=== PATIENT | female | born 1935 | race Caucasian/White ===

== ENCOUNTER 2018-08-16 15:14 | Emergency (ER) ==
[2018-08-16 15:23] VITALS: BP 182/74; TEMP 98.9; BMI 44.6
--- NOTE | 2018-08-16 18:44 | ED.PDOC ---
General ED Provider: Dr. CATALINA RENEE Chief Complaint: Extremity Swelling/Pain Stated Complaint: Lt leg and ankle swollen and painful. Daughter accompanies patient. States she is in town visiting and noted her mother's let was swollen. Known past hx of cellulits and peripheral vascular disease.Worried about DVT. States she noted the problem and attempting to treat at home. Time Seen by Physician: 15:40 Mode of Arrival: Walk-In Information Source: Patient, Family Exam Limitations: No limitations Primary Care Provider: CATALINA ABREU Seen Within Last 72 Hours for Same Complaint By: ED Nursing and Triage Documentation Reviewed and Agree: Yes Does patient meet sepsis criteria?: No System Inflammatory Response Syndrome: Not Applicable Sepsis Protocol: For patient's 13 years and over: Temp is 96.8 and below OR 101 and greater Pulse >90 BPM Resp >20/minute Acutely Altered Mental Status Are patient's symptoms suggestive of a new infection, such as: -Pneumonia -Skin, Soft Tissue -Endocarditis -UTI -Bone, Joint Infection -Implantable Device -Acute Abdominal Infection -Wound Infection -Meningitis -Blood Stream Catheter Infection -Unknown Skin Complaint Exam - Skin/Soft Tissue Complaint/Exam Onset/Duration: 1 week Symptoms Are: Still present Timing: Constant Initial Severity: Moderate Current Severity: Moderate Location: Distal Lt Leg Character: Reports: Redness, Swelling, Painful Aggravating: Reports: Touch Associated Signs and Symptoms: Reports: Tenderness. Denies: Fever, Chills, Itching, Drainage, Bruising, Red streaks, Joint swelling Related History: Reports: Similar episode Related Surgical History: Reports: None Recent Exposure to Others w/Similar Symptoms: No Skin Findings: Present: Erythema, Induration, Weeping skin Joint Tenderness Present: No Differential Diagnoses: Cellulitis, Other (PVD) Review of Systems - Review Of Systems Constitutional: Reports: No symptoms Eyes: Reports: No symptoms Ears, Nose, Mouth, Throat: Reports: No symptoms Respiratory: Reports: No symptoms Cardiac: Reports: No symptoms GI: Reports: No symptoms : Reports: No symptoms Musculoskeletal: Reports: No symptoms Skin: Reports: No symptoms, Other (See HPI) Neurological: Reports: No symptoms Endocrine: Reports: No symptoms Hematologic/Lymphatic: Reports: No symptoms All Other Systems: Reviewed and Negative Past Medical History - Past Medical History Previously Healthy: Yes Endocrine: Reports: None Cardiovascular: Reports: None, Hypertension, DVT Respiratory: Reports: None Hematological: Reports: None Gastrointestinal: Reports: None, GERD Genitourinary: Reports: None Neuro/Psych: Reports: None, Other (peripheral neuropathy) Musculoskeletal: Reports: None Cancer: Reports: None Last Menstrual Period: hysterectomy - Surgical History General Surgical History: Reports: None - Family History Family History: Reports: None - Social History Smoking Status: Never smoker Hx Substance Use: No Alcohol Screening: None Physical Exam - Physical Exam Appearance: Well-appearing, Obese Ill-appearing: Mild Pain Distress: Mild Eyes: OMER, EOMI, Conjunctiva clear ENT: Ears normal, Nose normal, Oropharynx normal Neck: Supple Respiratory: Airway patent, Breath sounds clear, Breath sounds equal, Respirations nonlabored Cardiovascular: RRR, Pulses normal, No rub, No murmur GI/: Soft, Nontender, No masses, Bowel sounds normal, No Organomegaly Musculoskeletal: Edema (BLLE/Lt LE more edematous. Homans sign neg bilat; neg calf tenderness) Skin: Warm, Dry, Normal color Neurological: Sensation intact, Motor intact, Cranial nerves intact, Alert, Oriented Psychiatric: Affect appropriate, Mood appropriate Critical Care Note - Critical Care Note Total Time (mins): 60 Course - Course Hematology/Chemistry: 08/16/18 17:30 08/16/18 17:30 Orders, Labs, Meds: Lab Review 08/16/18 08/16/18 08/16/18 17:30 17:30 17:48 WBC 6.41 RBC 4.20 Hgb 12.7 Hct 38.5 MCV 91.7 MCH 30.2 MCHC 33.0 RDW Coeff of Annika 14.5 Plt Count 216 Immature Gran % (Auto) 0.3 Neut % (Auto) 53.6 Lymph % (Auto) 35.1 [place] % (Auto) 8.3 Eos % (Auto) 2.2 Baso % (Auto) 0.5 Immature Gran # (Auto) 0.0 Neut # (Auto) 3.4 Lymph # (Auto) 2.3 [place] # (Auto) 0.5 Eos # (Auto) 0.1 Baso # (Auto) 0.0 Sodium 136.5 Potassium 4.03 Chloride 103.3 Carbon Dioxide 30.3 H Anion Gap 6.93 BUN 24.2 H Creatinine 0.95 Estimated GFR (MDRD) 56.00 BUN/Creatinine Ratio 25.47 Glucose 96.2 Calcium 9.52 Total Bilirubin 0.60 AST 24.8 ALT 16.9 Alkaline Phosphatase 60.6 Total Protein 7.66 Albumin 4.32 Globulin 3.34 Albumin/Globulin Ratio 1.29 Urine Color Yellow Urine Clarity Slightly Urine pH 7.0 Ur Specific [place] 1.015 Urine Protein Negative Urine Glucose (UA) Negative Urine Ketones Negative Urine Blood Negative Urine Nitrite Negative Urine Bilirubin Negative Urine Urobilinogen 0.2 Ur Leukocyte Esterase 2+ Urine Microscopic RBC 0-2 Urine Microscopic WBC 20-30 Ur Squamous Epith Cells 0-2 Urine Bacteria Trace Orders Category Date Time Status CBC W/ AUTO DIFF Stat LAB 08/16/18 17:30 Completed CMP [COMPREHENSIVE METABOLIC PANEL] Stat LAB 08/16/18 17:30 Completed UA [URINALYSIS C & S IF INDICATED] Stat LAB 08/16/18 17:48 Completed URINE CULTURE Stat LAB 08/16/18 17:48 Completed Cephalexin [Keflex] MEDS 08/16/18 18:43 Discontinued 500 mg PO ONCE STA Medications Discontinued Medications Generic Name Dose Route Start Last Admin Trade Name Freq PRN Reason Stop Dose Admin Cephalexin 500 mg 08/16/18 18:43 08/16/18 18:49 Keflex PO 08/16/18 18:44 500 mg ONCE STA Administration Vital Signs: Temp Pulse Resp BP Pulse Ox 08/16/18 15:14 98.9 F 82 16 182/74 H 94 L Departure - Departure Time of Disposition: 18:45 Disposition: HOME SELF-CARE Discharge Problem: Cellulitis and abscess of left leg, Stasis dermatitis of both legs, UTI ( urinary tract infection) Instructions: Urinary Tract Infection in Women (ED), Cellulitis (ED), Stasis Dermatitis (ED) Condition: Fair Pt referred to PMD for follow-up: Yes (1 wk) IPMP verified?: No Additional Instructions: Keep legs elevated Restrict salt consumption Take antibiotics Prescriptions: Cephalexin [Keflex] 500 mg PO BID #14 capsule Allergies/Adverse Reactions: Allergies No Known Allergies Allergy (Unverified 08/16/18 15:24) Home Medications: Ambulatory Orders Amlodipine Besylate 5 mg PO DAILY 08/16/18 Aspirin [Aspirin EC] 81 mg PO DAILY 08/16/18 Cephalexin [Keflex] 500 mg PO BID #14 capsule 08/16/18 Gabapentin [Neurontin] 600 mg PO DAILY 08/16/18 Hydralazine HCl 10 mg PO TID 08/16/18 Omeprazole [Prilosec] 20 mg PO QDAC 08/16/18 Disposition Discussed With: Patient, Family
[2018-08-16] MEDS: KEFLEX PO STA (18:49)
== END 2018-08-16 18:57 | disposition home or self-care (01) ==
LOC: ED 15:14
DX: L03.116 Cellulitis of left lower limb (principal); L02.416 Cutaneous abscess of left lower limb; I87.2 Venous insufficiency (chronic) (peripheral); N39.0 Urinary tract infection, site not specified; I10 Essential (primary) hypertension; Z86.718 Personal history of other venous thrombosis and embolism
CPT/HCPCS: 36415; 80053; 81001; 85025; 87086; 99283

== ENCOUNTER 2018-11-20 13:36 | Outpatient (CLI) | END 2018-11-20 13:37 | disposition home or self-care (01) | LOC: LAB 13:36 | PROVIDERS: ATTEND Family Medicine | DX: R79.9 Abnormal finding of blood chemistry, unspecified (principal) | CPT/HCPCS: 36415; 85025 ==

== ENCOUNTER 2018-12-22 13:45 | Outpatient (CLI) ==
--- NOTE | 2018-12-22 14:33 | DI ---
Exam: Chest two-view. HISTORY: Cough. Comparison: 08/10/2016 Findings: AP and lateral images of the chest are submitted. These demonstrate mild asymmetric eleva tion of the right diaphragm. There is no pneumothorax or edema. Mild opacification is noted at the left lung base. The cardiac silhouette is enlarged. The thoracic aorta is partially calcified. Deg enerative findings are noted throughout the spine. Impressions: Cardiomegaly and atherosclerosis. Mild left base atelectasis or pneumonia.
== END 2018-12-22 13:46 | disposition home or self-care (01) ==
LOC: RAD 13:45
PROVIDERS: ATTEND Family Medicine
DX: R05 Cough (principal)

== ENCOUNTER 2018-12-24 06:39 | Emergency (ER) ==
[2018-12-24 06:51] VITALS: BP 165/83; TEMP 99.8
[2018-12-24 07:19] VITALS: BMI 38.0
--- NOTE | 2018-12-24 08:30 | CT ---
EXAM: CT of the chest without contrast History: Cough. Comparison: Chest CT 10/31/2009 Technique: Multiplanar CT images through the thorax were obtained without the administration of IV c ontrast Findings: Heart is enlarged. Coronary calcifications and valvular calcifications of the heart. No axillary or mediastinal lymphadenopathy. Evaluation for hilar lymph nodes is limited due to the lack of contrast administration. Calcified granulomas are again seen within the thorax. No pleural flui d and no pneumothorax. No consolidated pneumonia. Scattered areas of subsegmental atelectasis. No suspicious lung masses or lung nodules. Within the visualized upper abdomen, multiple gallstones are seen. Tiny hiatal hernia. No acute oss eous abnormalities. Impression: 1. No focal pneumonia. 2. Scattered areas of subsegmental atelectasis. 3. Cardiomegaly without evidence for pulmonary edema. 4. Coronary artery disease. 5. Multiple gallstones. 6. Tiny hiatal hernia
--- NOTE | 2018-12-24 08:37 | ED.PDOC ---
General ED Provider: Dr. AICHA ALMEIDA Chief Complaint: Shortness of Air Stated Complaint: cough , congestion short of air Time Seen by Physician: 07:00 (December PRESENT) Mode of Arrival: Wheelchair Information Source: Patient Exam Limitations: No limitations Primary Care Provider: CATALINA ABREU Nursing and Triage Documentation Reviewed and Agree: Yes Does patient meet sepsis criteria?: No System Inflammatory Response Syndrome: Not Applicable Sepsis Protocol: For patient's 13 years and over: Temp is 96.8 and below OR 101 and greater Pulse >90 BPM Resp >20/minute Acutely Altered Mental Status Are patient's symptoms suggestive of a new infection, such as: -Pneumonia -Skin, Soft Tissue -Endocarditis -UTI -Bone, Joint Infection -Implantable Device -Acute Abdominal Infection -Wound Infection -Meningitis -Blood Stream Catheter Infection -Unknown Respiratory Complaint Exam - Respiratory Complaint/Exam Symptoms Are: Still present (cough and congestion no resp distress noted upon MD EVALUATION) Timing: Intermittent Initial Severity: Mild Location: Unknown, Chest Character: Reports: Non-productive cough, Dry cough Aggravating: Reports: None Alleviating: Reports: None Associated Signs and Symptoms: Denies: Rapid breathing, Dyspnea, Fever, Chills, Chest pain, Pleuritic chest pain, Wheezing, Hemoptysis, Dizziness, Calf pain, Calf swelling, Edema, URI, Nasal congestion, Hoarseness, Sinus discomfort, Vomiting, Sore throat, Weight loss, Decreased oral intake, Increased thirst, Increased appetite, Increased urination History of Healthcare-Acquired Pneumonia: No Related Surgical History: Reports: None Cardiac Risk Factors: Reports: Hypertension Pseudomonas Risk Factors: Reports: None Tuberculosis Risk Factors: Reports: None Status Asthmaticus Risk Factors: Reports: None Home Oxygen Use: No Recent Stress Test: No Recent Echo/LV Function: No Current Antibiotic Use: No Current Asthma Medication Use: No Respiratory Distress: None Inadequate Respiratory Effort: No Dysphagia Present: No Stridor Present: No JVD Present: No Accessory Muscle Use: No Retractions: Not Present, Inadequate effort Diminished Breath Sounds: Yes Sinus Tenderness: None Grunting Respirations: No Kussmaul Respirations: No Differential Diagnoses: Pneumonia, Bronchitis Review of Systems - Review Of Systems Constitutional: Reports: No symptoms Eyes: Reports: No symptoms Ears, Nose, Mouth, Throat: Reports: No symptoms Respiratory: Reports: Cough Cardiac: Reports: No symptoms GI: Reports: No symptoms : Reports: No symptoms Musculoskeletal: Reports: No symptoms Skin: Reports: No symptoms Neurological: Reports: No symptoms Endocrine: Reports: No symptoms Hematologic/Lymphatic: Reports: No symptoms All Other Systems: Reviewed and Negative Past Medical History - Past Medical History Previously Healthy: Yes Endocrine: Reports: None Cardiovascular: Reports: None, Hypertension, DVT Respiratory: Reports: None Hematological: Reports: None Gastrointestinal: Reports: None, GERD Genitourinary: Reports: None Neuro/Psych: Reports: None, Other (peripheral neuropathy) Musculoskeletal: Reports: None Cancer: Reports: None Last Menstrual Period: PT HAS HAD A HYSTERECTOMY - Surgical History General Surgical History: Reports: None - Family History Family History: Reports: None - Social History Smoking Status: Never smoker Hx Substance Use: No Alcohol Screening: None - Immunizations Tetanus Shot up to Date: Yes Physical Exam - Physical Exam Appearance: Well-appearing, No pain distress, Well-nourished Eyes: OMER, EOMI, Conjunctiva clear ENT: Ears normal, Nose normal, Oropharynx normal Respiratory: Rhonchi Cardiovascular: RRR, Pulses normal, No rub, No murmur GI/: Soft, Nontender, No masses, Bowel sounds normal, No Organomegaly Musculoskeletal: Normal strength, ROM intact, No edema, No calf tenderness Skin: Warm, Dry, Normal color Neurological: Sensation intact, Motor intact, Reflexes intact, Cranial nerves intact, Alert, Oriented Psychiatric: Affect appropriate, Mood appropriate Interpretation - Radiology Interpretation Radiology Interpretation By: Radiologist Radiology Results: No acute changes Exam Interpreted: CT Scan - Patient Registration Manager Rate: Normal Rhythm: Sinus Ectopy: None, PACs - EKG Interpretation Rate: Normal Rhythm: Sinus Ectopy: None [place]: NL ST Segment: Normal Critical Care Note - Critical Care Note Total Time (mins): 0 Course - Course Hematology/Chemistry: 12/24/18 07:11 12/24/18 07:11 Orders, Labs, Meds: Lab Review 12/24/18 12/24/18 12/24/18 07:11 07:11 07:20 WBC 6.57 RBC 3.94 L Hgb 11.9 L Hct 36.1 L MCV 91.6 MCH 30.2 MCHC 33.0 RDW Coeff of Annika 14.9 H Plt Count 192 Immature Gran % (Auto) 0.5 Neut % (Auto) 57.6 Lymph % (Auto) 25.7 [place] % (Auto) 12.9 H Eos % (Auto) 3.0 Baso % (Auto) 0.3 Immature Gran # (Auto) 0.0 Neut # (Auto) 3.8 Lymph # (Auto) 1.7 [place] # (Auto) 0.9 Eos # (Auto) 0.2 Baso # (Auto) 0.0 Puncture Site R rad O2 Saturation 96.0 ABG pH 7.392 ABG pCO2 40.8 ABG pO2 82.0 L ABG HCO3 24.8 ABG Total CO2 26 ABG Base Excess 0 Binu Test + FiO2 % 21.0 Sodium 140.1 Potassium 3.95 Chloride 105.0 Carbon Dioxide 27.7 Anion Gap 11.35 BUN 22.5 H Creatinine 0.97 Estimated GFR (MDRD) 55.00 BUN/Creatinine Ratio 23.19 Glucose 94.8 Calcium 8.62 Total Bilirubin 0.78 AST 19.9 ALT 14.3 Alkaline Phosphatase 63.3 Total Protein 6.56 Albumin 4.01 Globulin 2.55 Albumin/Globulin Ratio 1.57 Orders Category Date Time Status ABG DRAW REQUEST Stat CARDIO 12/24/18 07:10 Completed EKG-(ED ONLY) Stat CARDIO 12/24/18 07:10 Completed ABG Stat LAB 12/24/18 07:20 Completed CBC W/ AUTO DIFF Stat LAB 12/24/18 07:11 Completed COMPREHENSIVE METABOLIC PANEL Stat LAB 12/24/18 07:[address] CHEST W/O CONTRAST Stat RADS 12/24/18 07:09 Completed Vital Signs: Temp Pulse Resp BP Pulse Ox 12/24/18 06:39 99.8 F H 68 24 165/83 H 96 Departure - Departure Time of Disposition: 08:38 Disposition: HOME SELF-CARE Discharge Problem: Cough Instructions: Chronic Cough (ED) Condition: Good Pt referred to PMD for follow-up: Yes IPMP verified?: No Additional Instructions: Please call your Family Physician as soon as possible to schedule a follow-up appointment. Your blood gases are NORMAL YOUR CT DOES NOT SHOW A PNEUMONIA. NO EMERGENCY CONDITIONS DETECTED. Allergies/Adverse Reactions: Allergies lisinopril [From Zestril] Adverse Reaction (Verified 12/24/18 06:50) Cough Home Medications: Ambulatory Orders Amlodipine Besylate 5 mg PO DAILY 08/16/18 Aspirin [Aspirin EC] 81 mg PO DAILY 08/16/18 Gabapentin [Neurontin] 600 mg PO DAILY 08/16/18 Hydralazine HCl 10 mg PO TID 08/16/18 Omeprazole [Prilosec] 20 mg PO QDAC 08/16/18 Amoxicillin/Potassium Clav [Augmentin 875-125 mg Tab] 1 tab PO Q12HR 12/24/18 Disposition Discussed With: Patient, Family
== END 2018-12-24 08:55 | disposition home or self-care (01) ==
LOC: ED 06:39
DX: R05 Cough (principal); R06.02 Shortness of breath; I10 Essential (primary) hypertension; Z86.718 Personal history of other venous thrombosis and embolism; Z79.899 Other long term (current) drug therapy
CPT/HCPCS: 36415; 80053; 82803; 85025; 93005; 93010; 99283

== ENCOUNTER 2023-11-18 11:02 | Observation (INO) ==
--- NOTE | 2023-11-18 11:05 | ED.PDOC ---
General ED Provider: Dr. AICHA VEE MD Chief Complaint: Shortness of Air Stated Complaint: Patient history of hypertension and congestive heart failure complains of increasing dyspnea the past week exertional dyspnea as well as orthopnea over the past week. Patient states her diuretics were discontinued 6 months ago. Patient complains occasional cough denies fever or chills. Patient also complains of lower extremity swelling with warmth and redness over her mid to lower shins. Time Seen by Provider: 11/18/23 11:05 Mode of Arrival: Wheelchair Information Source: Patient and Family Exam Limitations: No limitations Primary Care Provider: CATALINA ABREU Nursing and Triage Documentation Reviewed and Agree: Yes What is Opioid Naive?: *Opioid Naive implies the patient is not already taking opioids or not chronically receiving opioids on a daily basis. *PRN dosing is not "usually" associated with tolerance. *Patients are at higher risk of over-sedation and aspiration. What is Opioid Tolerant?: *Opioid Tolerance implies less than the expected response to an opioid. *Acquired tolerance is defined by the patient taking 60mg of oral morphine daily (or equianalgesic dose of another opioid) for 1 week or more. *Often associated with chronic pain. *May take more than usual dose to achieve desired pain control. Review of Systems Review Of Systems Constitutional: Reports Weakness Eyes: Reports No symptoms Ears, Nose, Mouth, Throat: Reports No symptoms Respiratory: Reports Cough, Orthopnea and Shortness of Breath Cardiac: Reports No symptoms GI: Reports No symptoms : Reports No symptoms Musculoskeletal: Reports Other (Bilateral lower extremity swelling with redness and warmth and pain) Skin: Reports No symptoms Neurological: Reports No symptoms Endocrine: Reports No symptoms Hematologic/Lymphatic: Reports No symptoms All Other Systems: Reviewed and Negative [facility] Female Reproductive History Menstrual Hx Hysterectomy: Yes Hx Tubal Ligation: No Physical Exam Physical Exam Appearance: Reports Obese Ill-appearing: None Pain Distress: None Eyes: Reports OMER, EOMI and Conjunctiva clear ENT: Reports Ears normal, Nose normal and Oropharynx normal Neck: Supple Respiratory: Reports Airway patent, Breath sounds diminished and Other (Inspiratory crackles right base greater than left there is 2 pillow orthopnea noted.) Cardiovascular: Reports RRR and Pulses normal GI/: Reports Soft, Nontender and No masses Musculoskeletal: Reports Normal strength, Edema (There is 2+ pretibial edema with bilateral calf tenderness there is erythema and warmth from the mid bilateral shins and calf to the ankles.) and Calf tenderness Skin: Reports Warm and Dry Neurological: Reports Sensation intact Psychiatric: Reports Affect appropriate Physician Notification Case Discussed Physician Notified: discussed with hospitalist Mk Medrano Time of Notification: 15:05 Comments: and after discussing the patient'S laboratory data, presentation portable chest x-ray CT of the chest PE protocol and results of IV diuretics Admit To: Observation Critical Care Note Critical Care Note Total Critical Care Time (mins): 0 Course Course 11/18/23 11:15 11/18/23 11:15 Orders, Labs, Meds: Lab Review 11/18/23 11:15 WBC 5.21 RBC 3.86 L Hgb 11.4 L Hct 36.2 L MCV 93.8 MCH 29.5 MCHC 31.5 L RDW Coeff of Annika 15.2 H Plt Count 226 Immature Gran % (Auto) 0.4 Neut % (Auto) 66.9 Lymph % (Auto) 20.2 [place] % (Auto) 9.2 Eos % (Auto) 2.9 Baso % (Auto) 0.4 Neut # (Auto) 3.5 Lymph # (Auto) 1.1 [place] # (Auto) 0.5 Eos # (Auto) 0.2 Baso # (Auto) 0.0 Immature Gran # (Auto) 0.0 PT 10.8 INR 1.04 APTT 27.2 Sodium 140.9 Potassium 3.79 Chloride 106.8 Carbon Dioxide 28.2 Anion Gap 9.69 BUN 27.2 H Creatinine 0.90 Estimated GFR (MDRD) 59.00 BUN/Creatinine Ratio 30.22 Glucose 90.3 Calcium 8.96 Magnesium 2.24 Total Bilirubin 0.72 AST 24.8 ALT 23.2 Alkaline Phosphatase 71.3 Troponin I < 0.012 NT-Pro-B Natriuret Pep 3430 H Total Protein 7.25 Albumin 3.85 Globulin 3.40 Albumin/Globulin Ratio 1.13 D-Dimer 1394.41 H Orders Category Date Time Status EKG-(ED ONLY) Stat CARDIO 11/18/23 11:25 Completed IP: INSERT SALINE LOCK ONCE CARE 11/18/23 11:25 Active NPO REMINDER: IMAGING ONCE CARE 11/18/23 13:00 Completed Wheel Grinder [ED SWABBER APPLIED] .ONCE EMERGENCY 11/18/23 11:25 Active BLOOD CULTURE Stat LAB 11/18/23 13:04 Received CBC W/ AUTO DIFF Stat LAB 11/18/23 11:15 Completed CMP [COMPREHENSIVE METABOLIC PANEL] Stat LAB 11/18/23 11:15 Completed COVID [SARS COV-2 RNA RAPID ROZINA] Stat LAB 11/18/23 15:01 Ordered D-DIMER Stat LAB 11/18/23 11:15 Completed MAGNESIUM Stat LAB 11/18/23 11:15 Completed NT-PROBNP(ED) Stat LAB 11/18/23 11:15 Completed PT WITH INR Stat LAB 11/18/23 11:15 Completed PTT [PARTIAL THROMBOPLASTIN TIME] Stat LAB 11/18/23 11:15 Completed TROPONIN I Stat LAB 11/18/23 11:15 Completed Enoxaparin Sodium [Lovenox] Meds 11/18/23 15:04 Discontinued 60 mg SUBCUT ONCE STA Furosemide [Lasix] Meds 11/18/23 11:25 Discontinued 40 mg IVP ONCE STA Vancomycin/Water For Inj (Peg) [Vancomycin 1 Gram/200 Meds 11/18/23 11:30 Discontinued ml Premix] 1 gm in 200 ml IV NOW CHEST, 1V AP ONLY Stat RADS 11/18/23 11:25 Completed CTA CHEST PE PROTOCOL Stat RADS 11/18/23 13:00 Completed ULTRASOUND VENOUS SCAN ASHLEY LEGS [U/S VENOUS SCAN ASHLEY RADS 11/18/23 11:27 Completed LEGS] Stat Medications Discontinued Medications Generic Name Dose Route Start Last Admin Trade Name Freq PRN Reason Stop Dose Admin Enoxaparin Sodium 60 mg 11/18/23 15:04 Enoxaparin Sodium 60 Mg/0.6 Ml Syr SUBCUT 11/18/23 15:05 ONCE STA Furosemide 40 mg 11/18/23 11:25 11/18/23 11:53 Furosemide Inj 40 Mg/4 Ml Vial IVP 11/18/23 11:26 40 mg ONCE STA Administration VANCOMYCIN/WATER FOR INJ (PEG) 1 gm in 200 mls @ 200 mls/hr 11/18/23 11:30 11/18/23 13:06 Vancomycin 1 Gram/200 Ml Premix IV 11/18/23 12:29 200 mls/hr NOW ONE Administration Vital Signs: Temp Pulse Resp BP Pulse Ox 11/18/23 11:03 98.8 F 94 24 H 175/76 H 95 Discharge Plan Discharge Patient Disposition: PLACED OBSERVATION Discharge Problem: Bilateral cellulitis of lower leg, Acute CHF (congestive heart failure), Atrial fibrillation, new onset Prescriptions: No Action ropinirole 0.5 mg tablet 0.5 mg PO BEDTIME Patient Comments: TAKE 1 TABLET BY MOUTH EVERY NIGHT 1 HOUR BEFORE BEDTIME paroxetine HCl 10 mg tablet 10 mg PO DAILY Patient Comments: TAKE 1 TABLET BY MOUTH EVERY MORNING hydralazine 10 MG tablet 10 mg PO TID gabapentin [Neurontin] 600 MG tablet 600 mg PO DAILY amlodipine 5 MG tablet 5 mg PO DAILY Did you review [place] HELP DESK CONSULTANT for ALL controlled substances?: Not Applicable ED Provider: AICHA VEE Condition: Stable Physician Progress Note: History obtained from the patient as well as the power of attorney general complains of the patient has increasing shortness of breath the past several days associated with marked exertional dyspnea and two-pillow orthopnea. Patient states she discontinued her diuretics over 6 months ago. Has occasional cough denies chest pain palpitations diaphoresis. Patient also complains of bilateral lower extremity swelling associated with pain redness of both shins and calves as well as warmth. Patient denies fever or chills. EKG obtained interpretation by myself consistent with atrial fibrillation with a ventricular sponsor 98 left axis deviation. Nonspecific list changes. All laboratory data reviewed and are all within normal limits the troponin is less than 0.012 and the BNP is 3430 Patient ministered Lasix 40 mg IV that is only minimal and that the 2 sets of blood cultures were obtained and vancomycin 1 g IV piggyback. COVID chest x-ray interpretation by the radiologist consistent with no acute cardiopulmonary process. After receiving Lasix 40 mg IV the patient has diuresed 2700 lower extremities venous Dopplers interpretation by the radiologist is consistent with no evidence of DVTs of the lower extremities. CT chest PE protocol-contrast interpretation by radiology consistent with limited evaluation of the subsegmental pulmonary arteries secondary to respiratory motion. There is no findings suspicious for filling defect to the segmental level. No findings of right ventricular strain or pulmonary infarct. There are multiple pulmonary notes the appearance is nonspecific and related to an infectious etiology. Recommendations to follow-up with PET scan CT. Patient also received Lovenox 60 mg subcu Differential diagnosis: 1) acute congestive heart failure 2) lower extremity cellulitis 3) new onset atrial fibrillation Discussed with hospitalist Mk Medrano at 1505 for observation
[2023-11-18 11:39] LABS: BASOPHILS % (AUTO) 0.4 % (0.0-3.0); EOSINOPHILS # (AUTO) 0.2 K/ul (0.0-0.7); EOSINOPHILS % (AUTO) 2.9 % (0.0-7.0); HEMATOCRIT 36.2 % (37.0-47.0); HEMOGLOBIN 11.4 g/dl (12.0-16.0); IMMATURE GRANULOCYTE % (AUTO) 0.4 % (0.0-5.0); LYMPHOCYTES # (AUTO) 1.1 K/uL (0.60-3.4); LYMPHOCYTES % (AUTO) 20.2 (10.0-50.0); MEAN CORPUSCULAR HEMOGLOBIN 29.5 pg (27.0-31.0); MEAN CORPUSCULAR HGB CONC 31.5 (31.8-35.4); MEAN CORPUSCULAR VOLUME 93.8 fl (81.0-99.0); MONOCYTES # (AUTO) 0.5 K/uL (0.4-2.0); MONOCYTES % (AUTO) 9.2 (0-10); NEUTROPHILS # (AUTO) 3.5 K/ul (2.0-6.9); NEUTROPHILS % (AUTO) 66.9 % (42.2-75.2); PLATELET COUNT 226 10^3/uL (140-440); RDW COEFFICIENT OF VARIATION 15.2 % (11.6-14.8); RED BLOOD COUNT 3.86 10^6/ul (4.20-5.40); WHITE BLOOD COUNT 5.21 K/ul (4.6-10.2)
[2023-11-18] MEDS: LASIX IVP STA (11:53)
[2023-11-18 11:55] LABS: ALANINE AMINOTRANSFERASE 23.2 U/L (0-35); ALBUMIN 3.85 g/dL (3.5-5.0); ALKALINE PHOSPHATASE 71.3 U/L (53-141); ASPARTATE AMINO TRANSFERASE 24.8 U/L (14-36); BILIRUBIN,TOTAL 0.72 mg/dL (0.2-1.3); BLOOD UREA NITROGEN 27.2 mg/dL (7-17); CALCIUM 8.96 mg/dL (8.4-10.2); CARBON DIOXIDE 28.2 mmol/L (22-30.0); CHLORIDE 106.8 mmol/L (98-107); GLUCOSE 90.3 mg/dL (74-106); MAGNESIUM 2.24 mg/dL (1.6-2.3); POTASSIUM 3.79 mmol/L (3.5-5.1); SODIUM 140.9 mmol/L (134.5-145); TOTAL PROTEIN 7.25 g/dL (6.3-8.2)
[2023-11-18 11:56] LABS: PARTIAL THROMBOPLASTIN TIME 27.2 SEC (23.9-40.0); PROTHROMBIN TIME 10.8 SEC (9.3-11.0)
[2023-11-18 12:06] LABS: TROPONIN I < 0.012 ng/ml (0.0000-0.120)
--- NOTE | 2023-11-18 12:18 | DI ---
EXAM: SINGLE FRONTAL VIEW OF THE CHEST HISTORY: Dyspnea. COMPARISON: Chest x-ray 12/22/2018 FINDINGS: Cardiomediastinal silhouette is unremarkable. There is no pneumothorax or effusion. There is no consolidation, nodule or mass. The osseous structures demonstrate degenerative disease. IMPRESSION: No acute cardiopulmonary process
[2023-11-18] MEDS: VANCOMYCIN 1 GRAM/200 ML PREMIX 1 GM/200 ML BAG IV ONE (13:06)
--- NOTE | 2023-11-18 13:08 | US ---
EXAM: BILATERAL LOWER EXTREMITY DEEP VENOUS ULTRASOUND WITH DOPPLER IMAGING HISTORY: Swelling and pain. TECHNIQUE: Barksdale-scale ultrasound with compression maneuvers and color and spectral Doppler ultrasound at rest and with augmentation of the veins was performed. Images were obtained and stored in a perm anent archive. COMPARISON: None FINDINGS: RIGHT LOWER EXTREMITY: Common Femoral Vein: Normal compression. Normal flow on color Doppler images. Normal response to augm entation. Deep Femoral Vein: Normal compression. Normal flow on color Doppler images. Normal response to augmen tation. Femoral Vein: Normal compression. Normal flow on color Doppler images. Normal response to augmentatio n. Popliteal Vein: Normal compression. Normal flow on color Doppler images. Normal response to augmentat ion. Peroneal Vein: Normal compression. Normal flow on color Doppler images. Posterior Tibial Vein: Normal compression. Normal flow on color Doppler images. Anterior Tibial Vein: Normal compression. Normal flow on color Doppler images. Greater Saphenous Vein (Superficial): Normal compression. Normal flow on color Doppler images. Soft tissue edema LEFT LOWER EXTREMITY: Common Femoral Vein: Normal compression. Normal flow on color Doppler images. Normal response to augm entation. Deep Femoral Vein: Normal compression. Normal flow on color Doppler images. Normal response to augmen tation. Femoral Vein: Normal compression. Normal flow on color Doppler images. Normal response to augmentatio n. Popliteal Vein: Normal compression. Normal flow on color Doppler images. Normal response to augmentat ion. Peroneal Vein: Normal compression. Normal flow on color Doppler images. Posterior Tibial Vein: Normal compression. Normal flow on color Doppler images. Anterior Tibial Vein: Normal compression. Normal flow on color Doppler images. Greater Saphenous Vein (Superficial): Normal compression. Normal flow on color Doppler images. Soft tissue edema. IMPRESSION: No deep venous thrombosis (DVT) in the bilateral lower extremities.
--- NOTE | 2023-11-18 14:30 | CT ---
EXAM: CTA CHEST FOR PE HISTORY: Acute dyspnea COMPARISON: Correlation with chest radiograph from earlier the same day and comparison with CT chest from 12/24/2018 TECHNIQUE: CTA of the chest was performed from the lung apices to the upper abdomen after Omnipaqu e IV contrast was administered using PE protocol. 3-D imaging was also provided. FINDINGS: Respiratory motion artifact limits evaluation of the subsegmental pulmonary arteries. However, no fi ndings suspicious for pulmonary artery filling defect to the segmental level. The pulmonary trunk an d main pulmonary arteries are prominent.. No CT findings of acute right ventricular strain or pulmonary infarct. The heart is enlarged. 3 mm nodule in the right upper lobe, stable (axial image 32). 8 mm nodule in the right lower lobe (a xial image 112). 8 mm nodule in the left upper lobe (axial image 79). Additional scattered pulmonar y nodules in both lungs. Mosaic attenuation in the lungs. Interlobular septal thickening. Trace bilateral pleural effusions with adjacent consolidation. Gallstones. Small hiatal hernia. Advanced degenerative changes to the shoulders. IMPRESSION: Limited evaluation of the subsegmental pulmonary arteries secondary to respiratory motion. However, no findings suspicious for filling defect to the segmental level. No findings of right vent ricular strain or pulmonary infarct. Unexpected finding. Multiple pulmonary nodules. The appearance is nonspecific and could be related to an infectious etio logy. However, metastasis is not excludable. Clinical follow-up with follow up PET CT and / or tissue sampling as warranted. At minimum, follow-u p CT chest and 1-3 months is recommended. Cardiomegaly. Mosaic attenuation in the lungs and interlobular septal thickening. There are also sm all bilateral pleural effusions with adjacent consolidation. This appearance can be seen with conges tive heart failure. Dilated pulmonary arteries, nonspecific but can be seen with pulmonary arterial hypertension. All CT scans are performed using dose optimization techniques as appropriate to the performed exam an d include at least one of the following: Automated exposure control, adjustment of the mA and/or kV according t o size, and the use of iterative reconstruction technique.
[2023-11-18] MEDS: LOVENOX SUBCUT STA (15:21)
[2023-11-18 15:37] LABS: SARS COV-2 RNA RAPID NAAT NEGATIVE (NEGATIVE)
[2023-11-18 17:01] VITALS: BMI 39.3
--- NOTE | 2023-11-18 19:03 | PCM ---
Date of Service Date Seen by Provider: 11/18/23 Time Seen by Provider: 15:30 Admit Day/Time Admission Date: 11/18/23 Admission Time: 15:00 Reason for Admission Chief Complaint: CHF, A-FIB Hospital Provider Hospital Provider: W[place] [facility] [place] Primary Care Physician: CATALINA ABREU History of Present Illness History of Present Illness: 88 yo female presented to the ER with complaints of bilateral lower extremity edema and dyspnea on exertion. Patient states that her shortness of breath started a couple days ago and has progressively worsened. In addition to shortness of breath, she has noticed that she had swelling to her feet and ankles accompanied with redness. Denies any known pmh of CHF or history of taking diuretics that she is aware of. States that her legs have also been warm to the touch. Denies any open areas with drainage. No fever at home. States she has had wound care to her lower legs in the past but is not receiving currently. Unknown if she has gained a significant amount of weight recently and states that she does not believe she has had an echo in the past. While in ER, O2 saturation dropped down into the 90s and she was placed on oxygen at 2L. Sat improved to 96-98%. EKG completed and showed A fib at a rate of 98. No previous history of A fib that she is aware of and is not on anticoagulation. States that she has been on anticoagulation in the past but is unsure why. Denies any chest pain, palpitations, or heart racing. BNP found to be >3000. She was given 40 mg of lasix and diuresed approx. 3L of urine while in ER. Admitted to med/surg for further treatment of new onset CHF, A fib, and cellulitis to BLE. Case Discussed With Case Discussed With: Patient's case was discussed with the ER Physicians, Dr. Srinivasan. [facility] Medical History Anxiety F41.9 - Anxiety disorder, unspecified (ICD-10) Neuropathy G62.9 - Polyneuropathy, unspecified (ICD-10) Hypertension I10 - Essential (primary) hypertension (ICD-10) Surgical History History of hysterectomy Z90.710 - Acquired absence of both cervix and uterus (ICD-10) No history of previous surgery Family History Other No known health problems Social History Smoking and tobacco status: Never smoker Alcohol intake: never Allergies Allergies Allergy/AdvReac Type Severity Reaction Status Date / Time lisinopril [From Zestril] AdvReac Cough Verified 11/18/23 11:07 Current Medications Home Medications amlodipine 5 mg tablet 5 mg PO DAILY 08/16/18 [History Confirmed 11/18/23 Last Taken Unknown] gabapentin 600 mg tablet (Neurontin) 600 mg PO DAILY 08/16/18 [History Confirmed 11/18/23 Last Taken Unknown] hydralazine 10 mg tablet 10 mg PO TID 08/16/18 [History Confirmed 11/18/23 Last Taken Unknown] paroxetine HCl 10 mg tablet 10 mg PO DAILY 11/18/23 [History Confirmed 11/18/23 Last Taken Unknown] ropinirole 0.5 mg tablet 0.5 mg PO BEDTIME 11/18/23 [History Confirmed 11/18/23 Last Taken Unknown] Home Acetaminophen (Acetaminophen 325 Mg Tablet) 650 mg PO Q4H PRN PRN Reason: Mild Pain Amlodipine Besylate (Amlodipine Besylate 5 Mg Tablet) 5 mg PO BID FLACO Enoxaparin Sodium (Enoxaparin Sodium 40 Mg/0.4 Ml Syr) 40 mg SUBCUT DAILY FLACO Furosemide (Furosemide Inj 20 Mg/2 Ml Vial) 20 mg IVP Q12H FLACO Gabapentin (Gabapentin 300 Mg Capsule) 600 mg PO BEDTIME FLACO Hydralazine HCl (Hydralazine Hcl 10 Mg Tablet) 10 mg PO TID FLACO Clindamycin Phosphate (Cleocin 600 Mg/50 Ml D5w) 600 mg in 50 mls @ 75 mls/hr IV Q8HR FLACO Stop: 11/21/23 20:59 Metoprolol Tartrate (Metoprolol Tartrate 25 Mg Tablet) 25 mg PO BID FLACO Paroxetine HCl (Paroxetine Hcl 20 Mg Tablet) 10 mg PO DAILY FLACO Ropinirole HCl (Ropinirole Hcl 0.25 Mg Tablet) 0.5 mg PO BEDTIME FLACO Discontinued Medications Enoxaparin Sodium (Enoxaparin Sodium 60 Mg/0.6 Ml Syr) 60 mg SUBCUT ONCE STA Stop: 11/18/23 15:05 Last Admin: 11/18/23 15:21 Dose: 60 mg Furosemide (Furosemide Inj 40 Mg/4 Ml Vial) 40 mg IVP ONCE STA Stop: 11/18/23 11:26 Last Admin: 11/18/23 11:53 Dose: 40 mg VANCOMYCIN/WATER FOR INJ (PEG) (Vancomycin 1 Gram/200 Ml Premix) 1 gm in 200 mls @ 200 mls/hr IV NOW ONE Stop: 11/18/23 12:29 Last Admin: 11/18/23 13:06 Dose: 200 mls/hr Opioid Naive vs. Tolerant Does Patient Take Opioids?: No Is Patient Opioid Naive?: Yes What is Opioid Naive?: *Opioid Naive implies the patient is not already taking opioids or not chronically receiving opioids on a daily basis. *PRN dosing is not "usually" associated with tolerance. *Patients are at higher risk of over-sedation and aspiration. Is Patient Opioid Tolerant?: No What is Opioid Tolerant?: *Opioid Tolerance implies less than the expected response to an opioid. *Acquired tolerance is defined by the patient taking 60mg of oral morphine daily (or equianalgesic dose of another opioid) for 1 week or more. *Often associated with chronic pain. *May take more than usual dose to achieve desired pain control. Review of Systems Constitutional: Reports No symptoms Head: Reports Normocephalic Eyes: Reports No symptoms Ears: Reports No symptoms Nose: Reports No symptoms Mouth: Reports No symptoms Throat: Reports No symptoms Cardiovascular: Reports No symptoms and Edema (BLE) Respiratory: Reports Shortness of air Gastrointestinal: Reports No symptoms Genitourinary: Reports No Symptoms Musculoskeletal: Reports No symptoms Endocrine: Reports No symptoms Hematology: Reports No symptoms Immunology: Reports No symptoms Neurological: Reports No symptoms Psychiatric: Reports No symptoms Physical examination Most Recent Vital Signs: Most Recent Vital Signs Temperature 97.7 F 11/18/23 18:30 Temperature Source Temporal Artery Scan 11/18/23 18:30 Temperature Source Infrared 11/18/23 11:03 Pulse Rate 97 11/18/23 18:30 Respiratory Rate 20 11/18/23 18:30 Blood Pressure 143/79 H 11/18/23 18:30 Blood Pressure Mean 100 11/18/23 18:30 Blood Pressure Left Arm 137/87 11/18/23 16:30 Blood Pressure Location Left Arm 11/18/23 18:30 Blood Pressure Position Sitting 11/18/23 18:30 O2 Sat by Pulse Oximetry 98 11/18/23 18:30 Oxygen Delivery Method Nasal Cannula 11/18/23 18:30 Oxygen Flow Rate 2 11/18/23 18:30 Height 5 ft 11/18/23 16:30 Weight 201 lb 5 oz 11/18/23 17:50 Appearance: Positive No Apparent Distress, Alert and Oriented x3 and Obese Skin: Positive Warm and Erythema (to bilateral lower legs, no open areas) HEENT: Positive Normocephalic and PERRLA Neck: Positive Supple and Midline Trachea Chest/Lungs: Positive Symmetrical With Equal Breath Sounds, Clear to Auscultation Bilaterally and Good Air Movement all 4 Lung [place] Heart: Positive Pulses Normal and Irregular Rhythm GI/: Positive Soft, Nontender, Bowel Sounds Normal and No Distention Musculoskeletal: Positive Not Examined Extremities: Positive Edema (+1-2 non-pitting edema BLE), Intact Peripheral Pulses, Stable Joints Without Laxity and Good ROM in All Joints Neurological: Positive Sensation Intact, Motor intact, Alert, Oriented and Muscle Strength 5/5 in Upper and Lower Extremities Bilaterally Labs This Visit Labs This Visit: Labs This Visit 11/18/23 11/18/23 11:15 14:58 WBC 5.21 RBC 3.86 L Hgb 11.4 L Hct 36.2 L MCV 93.8 MCH 29.5 MCHC 31.5 L RDW Coeff of Annika 15.2 H Plt Count 226 Immature Gran % (Auto) 0.4 Neut % (Auto) 66.9 Lymph % (Auto) 20.2 [place] % (Auto) 9.2 Eos % (Auto) 2.9 Baso % (Auto) 0.4 Neut # (Auto) 3.5 Lymph # (Auto) 1.1 [place] # (Auto) 0.5 Eos # (Auto) 0.2 Baso # (Auto) 0.0 Immature Gran # (Auto) 0.0 PT 10.8 INR 1.04 APTT 27.2 Sodium 140.9 Potassium 3.79 Chloride 106.8 Carbon Dioxide 28.2 Anion Gap 9.69 BUN 27.2 H Creatinine 0.90 Estimated GFR (MDRD) 59.00 BUN/Creatinine Ratio 30.22 Glucose 90.3 Calcium 8.96 Magnesium 2.24 Total Bilirubin 0.72 AST 24.8 ALT 23.2 Alkaline Phosphatase 71.3 Troponin I < 0.012 NT-Pro-B Natriuret Pep 3430 H Total Protein 7.25 Albumin 3.85 Globulin 3.40 Albumin/Globulin Ratio 1.13 D-Dimer 1394.41 H SARS CoV-2 RNA Rapid ROZINA Negative Imaging Imaging: EXAM: CTA CHEST FOR PE FINDINGS: Respiratory motion artifact limits evaluation of the subsegmental pulmonary arteries. However, no findings suspicious for pulmonary artery filling defect to the segmental level. The pulmonary trunk and main pulmonary arteries are prominent.. No CT findings of acute right ventricular strain or pulmonary infarct. The heart is enlarged. 3 mm nodule in the right upper lobe, stable (axial image 32). 8 mm nodule in the right lower lobe (axial image 112). 8 mm nodule in the left upper lobe (axial image 79). Additional scattered pulmonary nodules in both lungs. Mosaic attenuation in the lungs. Interlobular septal thickening. Trace bilateral pleural effusions with adjacent consolidation. Gallstones. Small hiatal hernia. Advanced degenerative changes to the shoulders. IMPRESSION: Limited evaluation of the subsegmental pulmonary arteries secondary to respiratory motion. However, no findings suspicious for filling defect to the segmental level. No findings of right ventricular strain or pulmonary infarct. Unexpected finding. Multiple pulmonary nodules. The appearance is nonspecific and could be related to an infectious etiology. However, metastasis is not excludable. Clinical follow-up with follow up PET CT and / or tissue sampling as warranted. At minimum, follow-up CT chest and 1-3 months is recommended. Cardiomegaly. Mosaic attenuation in the lungs and interlobular septal thickening. There are also small bilateral pleural effusions with adjacent consolidation. This appearance can be seen with congestive heart failure. Dilated pulmonary arteries, nonspecific but can be seen with pulmonary arterial hypertension. EKG Interpretation EKG Interpretation: Atrial fibrillation rate 98 Review Statement Review Statement: I have independently reviewed and interpreted the labs/EKGs/imaging that were ordered by the ER provider. I have reviewed all outside records that are available currently in our EMR including imaging/notes/labs from previous visits. Plan Plan: 1. Acute Hypoxic Respiratory Failure in setting of CHF - wean O2 as tolerated, lasix 2. CHF, unknown type - unknown onset, lasix 20 mg Q12H, diuresed 3L in ER, fluid restriction, I&O, daily weight, echo tomorrow 3. New Onset Atrial Fibrillation - lovenox for anticoagulation, will d/c with eliquis, metoprolol tartrate 25 mg BID initially - will d/c with succinate 4. Cellulitis to BLE - likely due to fluid retention, treating with clindamycin Q8H IVPB 5. Hypertension - chronic, stable, continue home medications DVT Prophylaxis: Lovenox Time Spent: Greater than 80 minutes spent with patient, 50% of the time spent with this patient was devoted to counseling and coordination of care. [facility] minutes spent discussing advance care planning. Disposition: Admit to: Med/Surg Observation Full Code Discussed Plan of Care with Dr. Meera Clark. Medications Medication Orders: Medications Ordered Category Date Time Status Acetaminophen [Tylenol] Meds 11/18/23 15:46 Active 650 mg PO Q4H PRN Amlodipine Besylate [Norvasc] Meds 11/18/23 21:00 Active 5 mg PO BID Clindamycin Phosphate/D5w [Cleocin 600 mg/50 ml D5w] Meds 11/18/23 21:00 Active 600 mg in 50 ml IV Q8HR Enoxaparin Sodium [Lovenox] Meds 11/19/23 09:00 Active 40 mg SUBCUT DAILY Furosemide [Lasix] Meds 11/18/23 23:00 Active 20 mg IVP Q12H Gabapentin [Neurontin] Meds 11/18/23 21:00 Active 600 mg PO BEDTIME Hydralazine HCl [Apresoline] Meds 11/18/23 21:00 Active 10 mg PO TID Metoprolol Tartrate [Lopressor] Meds 11/18/23 21:00 Active 25 mg PO BID Paroxetine HCl [Paxil] Meds 11/19/23 09:00 Active 10 mg PO DAILY Ropinirole HCl [Requip] Meds 11/18/23 21:00 Active 0.5 mg PO BEDTIME
[2023-11-18] MEDS: LOPRESSOR PO SCH (20:59)
[2023-11-18] MEDS: NORVASC PO SCH (20:59)
[2023-11-18] MEDS: REQUIP PO SCH (20:59)
[2023-11-18] MEDS: NEURONTIN PO SCH (21:00)
[2023-11-18] MEDS: CLEOCIN 600 MG/50 ML D5W 600 MG/50 ML BAG IV SCH (21:00)
[2023-11-18] MEDS: APRESOLINE PO SCH (21:00)
[2023-11-18] MEDS: LASIX IVP SCH (22:07)
[2023-11-19 05:24] LABS: BASOPHILS % (AUTO) 0.7 % (0.0-3.0); EOSINOPHILS # (AUTO) 0.2 K/ul (0.0-0.7); EOSINOPHILS % (AUTO) 4.3 % (0.0-7.0); HEMATOCRIT 34.3 % (37.0-47.0); HEMOGLOBIN 10.7 g/dl (12.0-16.0); IMMATURE GRANULOCYTE % (AUTO) 0.2 % (0.0-5.0); LYMPHOCYTES # (AUTO) 1.1 K/uL (0.60-3.4); LYMPHOCYTES % (AUTO) 23.8 (10.0-50.0); MEAN CORPUSCULAR HEMOGLOBIN 29.3 pg (27.0-31.0); MEAN CORPUSCULAR HGB CONC 31.2 (31.8-35.4); MONOCYTES # (AUTO) 0.5 K/uL (0.4-2.0); MONOCYTES % (AUTO) 11.9 (0-10); NEUTROPHILS # (AUTO) 2.6 K/ul (2.0-6.9); NEUTROPHILS % (AUTO) 59.1 % (42.2-75.2); PLATELET COUNT 214 10^3/uL (140-440); RDW COEFFICIENT OF VARIATION 14.9 % (11.6-14.8); RED BLOOD COUNT 3.65 10^6/ul (4.20-5.40); WHITE BLOOD COUNT 4.46 K/ul (4.6-10.2)
[2023-11-19 05:45] LABS: ALBUMIN 3.43 g/dL (3.5-5.0); ALKALINE PHOSPHATASE 62.4 U/L (53-141); ASPARTATE AMINO TRANSFERASE 24.3 U/L (14-36); BILIRUBIN,TOTAL 0.54 mg/dL (0.2-1.3); BLOOD UREA NITROGEN 25.2 mg/dL (7-17); CALCIUM 8.52 mg/dL (8.4-10.2); CARBON DIOXIDE 32.9 mmol/L (22-30.0); CHLORIDE 104.4 mmol/L (98-107); CREATININE 0.92 mg/dL (0.60-1.30); GLUCOSE 89.3 mg/dL (74-106); POTASSIUM 3.61 mmol/L (3.5-5.1); SODIUM 140.7 mmol/L (134.5-145); TOTAL PROTEIN 6.56 g/dL (6.3-8.2)
[2023-11-19] MEDS: LASIX IVP SCH (05:56)
[2023-11-19] MEDS ORDERED: LASIX IVP SCH (06:00)
[2023-11-19] MEDS: PAXIL PO SCH (08:07)
[2023-11-19] MEDS: LOVENOX SUBCUT SCH (08:09)
--- NOTE | 2023-11-19 08:42 | PCM.PROG ---
Date/Time Seen Date Seen by Provider: 11/19/23 Time Seen by Provider: 08:00 Provider Provider: [facility]AL[facility] Chief Complaint Chief Complaint: CHF, A-FIB Subjective Subjective: Weaned off oxygen this am. Feeling much better. Denies SOB. Feels that swelling and redness in lower extremities has improved greatly. Objective Appearance: Positive No Apparent Distress, Alert and Oriented x3 and Obese Chest/Lungs: Positive Symmetrical With Equal Breath Sounds, Clear to Auscultation Bilaterally and Good Air Movement all 4 Lung Chiang Heart: Positive Pulses Normal and Irregular Rhythm GI/: Positive Soft, Nontender, Bowel Sounds Normal and No Distention Musculoskeletal: Positive Not Examined Neurological: Positive Sensation Intact, Motor intact, Alert and Oriented Additional Findings: Trace edema BLE, bilateral erythema- improved from yesterday, no open areas with drainage. Vital Signs Vital Signs: Vital Signs: Last 24 Hours 11/18/23 11:03 11/18/23 16:30 11/18/23 16:30 Temperature 98.8 F 97.3 F L Temperature Source Infrared Oral Pulse Rate 94 84 Respiratory Rate 24 H 18 18 Blood Pressure 175/76 H Blood Pressure Mean Blood Pressure Left Arm 137/87 Blood Pressure Location Blood Pressure Position Supine O2 Sat by Pulse Oximetry 95 98 Oxygen Delivery Method Nasal Cannula Nasal Cannula Oxygen Flow Rate 2 2 Height 5 ft 1 in 5 ft Weight 211 lb 10.3 oz 201 lb 5 oz Telemetry Type Telemetry Monitoring Irregular Telemetry Rate (Approximate) Telemetry Heart Rate EKG [place] Interval EKG QRS Interval Telemetry Strip Reading 11/18/23 17:00 11/18/23 17:50 11/18/23 18:00 Temperature Temperature Source Pulse Rate Respiratory Rate Blood Pressure Blood Pressure Mean Blood Pressure Left Arm Blood Pressure Location Blood Pressure Position O2 Sat by Pulse Oximetry Oxygen Delivery Method Nasal Cannula Nasal Cannula Oxygen Flow Rate Height Weight 201 lb 5 oz Telemetry Type Telemetry Monitoring Irregular Telemetry Rate (Approximate) Telemetry Heart Rate EKG [place] Interval EKG QRS Interval Telemetry Strip Reading 11/18/23 18:30 11/18/23 19:00 11/18/23 19:00 Temperature 97.7 F Temperature Source Temporal Artery Scan Pulse Rate 97 Respiratory Rate 20 Blood Pressure 143/79 H Blood Pressure Mean 100 Blood Pressure Left Arm Blood Pressure Location Left Arm Blood Pressure Position Sitting O2 Sat by Pulse Oximetry 98 Oxygen Delivery Method Nasal Cannula Nasal Cannula Oxygen Flow Rate 2 Height Weight Telemetry Type Remote Telemetry Telemetry Monitoring Started Irregular Telemetry Rate (Approximate) 70-80 BPM Telemetry Heart Rate EKG [place] Interval EKG QRS Interval 0.08 Telemetry Strip Reading A-FIB 11/18/23 19:37 11/18/23 20:00 11/18/23 20:19 Temperature 98.9 F Temperature Source Temporal Artery Scan Pulse Rate 80 Respiratory Rate 20 Blood Pressure 143/68 H Blood Pressure Mean 93 Blood Pressure Left Arm Blood Pressure Location Left Arm Blood Pressure Position Supine O2 Sat by Pulse Oximetry 97 Oxygen Delivery Method Nasal Cannula Nasal Cannula Nasal Cannula Oxygen Flow Rate 2 2 Height Weight Telemetry Type Telemetry Monitoring Irregular Telemetry Rate (Approximate) Telemetry Heart Rate EKG [place] Interval EKG QRS Interval Telemetry Strip Reading 11/18/23 21:00 11/18/23 22:00 11/18/23 23:00 Temperature Temperature Source Pulse Rate Respiratory Rate Blood Pressure Blood Pressure Mean Blood Pressure Left Arm Blood Pressure Location Blood Pressure Position O2 Sat by Pulse Oximetry Oxygen Delivery Method Nasal Cannula Nasal Cannula Nasal Cannula Oxygen Flow Rate Height Weight Telemetry Type Telemetry Monitoring Irregular Telemetry Rate (Approximate) Telemetry Heart Rate EKG W[place] Interval EKG QRS Interval Telemetry Strip Reading 11/19/23 00:00 11/19/23 01:00 11/19/23 01:00 Temperature Temperature Source Pulse Rate Respiratory Rate Blood Pressure Blood Pressure Mean Blood Pressure Left Arm Blood Pressure Location Blood Pressure Position O2 Sat by Pulse Oximetry Oxygen Delivery Method Nasal Cannula Nasal Cannula Oxygen Flow Rate Height Weight Telemetry Type Remote Telemetry Telemetry Monitoring Continues Irregular Telemetry Rate (Approximate) Telemetry Heart Rate 83 EKG W[place] Interval EKG QRS Interval 0.08 Telemetry Strip Reading a fib 11/19/23 01:56 11/19/23 02:00 11/19/23 03:00 Temperature 97.7 F Temperature Source Temporal Artery Scan Pulse Rate 76 Respiratory Rate 20 Blood Pressure 107/67 Blood Pressure Mean 80 Blood Pressure Left Arm Blood Pressure Location Left Arm Blood Pressure Position Supine O2 Sat by Pulse Oximetry 97 Oxygen Delivery Method Nasal Cannula Nasal Cannula Nasal Cannula Oxygen Flow Rate 2 Height Weight Telemetry Type Telemetry Monitoring Irregular Telemetry Rate (Approximate) Telemetry Heart Rate EKG W[place] Interval EKG QRS Interval Telemetry Strip Reading 11/19/23 04:00 11/19/23 05:00 11/19/23 05:28 Temperature Temperature Source Pulse Rate Respiratory Rate Blood Pressure Blood Pressure Mean Blood Pressure Left Arm Blood Pressure Location Blood Pressure Position O2 Sat by Pulse Oximetry Oxygen Delivery Method Nasal Cannula Nasal Cannula Nasal Cannula Oxygen Flow Rate 2 Height Weight Telemetry Type Telemetry Monitoring Irregular Telemetry Rate (Approximate) Telemetry Heart Rate EKG W[place] Interval EKG QRS Interval Telemetry Strip Reading 11/19/23 05:37 11/19/23 06:00 11/19/23 07:00 Temperature 98.6 F Temperature Source Temporal Artery Scan Pulse Rate 66 Respiratory Rate 17 Blood Pressure 113/70 Blood Pressure Mean 84 Blood Pressure Left Arm Blood Pressure Location Left Arm Blood Pressure Position Supine O2 Sat by Pulse Oximetry 97 Oxygen Delivery Method Nasal Cannula Nasal Cannula Nasal Cannula Oxygen Flow Rate 2 Height Weight Telemetry Type Telemetry Monitoring Irregular Telemetry Rate (Approximate) Telemetry Heart Rate EKG WY Interval EKG QRS Interval Telemetry Strip Reading 11/19/23 07:00 11/19/23 07:53 11/19/23 07:59 Temperature Temperature Source Pulse Rate Respiratory Rate Blood Pressure Blood Pressure Mean Blood Pressure Left Arm Blood Pressure Location Blood Pressure Position O2 Sat by Pulse Oximetry Oxygen Delivery Method Room Air Room Air Oxygen Flow Rate Height Weight Telemetry Type Bedside Monitor Telemetry Monitoring Continues Irregular Telemetry Rate (Approximate) Telemetry Heart Rate 72 EKG WY Interval 0.08 L EKG QRS Interval 0.14 H Telemetry Strip Reading sinus rhythm with PACs and bbb Lab Results Lab Results: Lab Results: Last 24 Hours 11/19/23 11/18/23 11/18/23 05:18 14:58 11:15 WBC 4.46 L 5.21 RBC 3.65 L 3.86 L Hgb 10.7 L 11.4 L Hct 34.3 L 36.2 L MCV 94.0 93.8 MCH 29.3 29.5 MCHC 31.2 L 31.5 L RDW Coeff of Annika 14.9 H 15.2 H Plt Count 214 226 Immature Gran % (Auto) 0.2 0.4 Neut % (Auto) 59.1 66.9 Lymph % (Auto) 23.8 20.2 Faulk % (Auto) 11.9 H 9.2 Eos % (Auto) 4.3 2.9 Baso % (Auto) 0.7 0.4 Neut # (Auto) 2.6 3.5 Lymph # (Auto) 1.1 1.1 Faulk # (Auto) 0.5 0.5 Eos # (Auto) 0.2 0.2 Baso # (Auto) 0.0 0.0 Immature Gran # (Auto) 0.0 0.0 PT 10.8 INR 1.04 APTT 27.2 Sodium 140.7 140.9 Potassium 3.61 3.79 Chloride 104.4 106.8 Carbon Dioxide 32.9 H 28.2 Anion Gap 7.01 9.69 BUN 25.2 H 27.2 H Creatinine 0.92 0.90 Estimated GFR (MDRD) 58.00 59.00 BUN/Creatinine Ratio 27.39 30.22 Glucose 89.3 90.3 Calcium 8.52 8.96 Magnesium 2.24 Total Bilirubin 0.54 0.72 AST 24.3 24.8 ALT 21.0 23.2 Alkaline Phosphatase 62.4 71.3 Troponin I < 0.012 NT-Pro-B Natriuret Pep 3430 H Total Protein 6.56 7.25 Albumin 3.43 L 3.85 Globulin 3.13 3.40 Albumin/Globulin Ratio 1.09 1.13 D-Dimer 1394.41 H SARS CoV-2 RNA Rapid ROZINA Negative Additional Comments Additional Comments: I have independently reviewed and interpreted the labs/EKGs/imaging ordered during this hospital stay. I have reviewed outside records that are available in our EMR that pertain to medical stay including imaging/notes/labs from previous visits. Active Medications Active Medications: Medications Generic Name Dose Route Start Last Admin Trade Name Freq PRN Reason Stop Dose Admin Acetaminophen 650 mg 11/18/23 15:46 Acetaminophen 325 Mg Tablet PO Q4H PRN Mild Pain Amlodipine Besylate 5 mg 11/18/23 21:00 11/19/23 08:07 Amlodipine Besylate 5 Mg Tablet PO 5 mg BID FLACO Administration Enoxaparin Sodium 40 mg 11/19/23 09:00 11/19/23 08:09 Enoxaparin Sodium 40 Mg/0.4 Ml Syr SUBCUT 40 mg DAILY FLACO Administration Furosemide 20 mg 11/20/23 06:00 Furosemide 20 Mg Tablet PO QDAC2 FLACO Gabapentin 600 mg 11/18/23 21:00 11/18/23 21:00 Gabapentin 300 Mg Capsule PO 600 mg BEDTIME FLACO Administration Hydralazine HCl 10 mg 11/18/23 21:00 11/19/23 08:07 Hydralazine Hcl 10 Mg Tablet PO 10 mg TID FLACO Administration Clindamycin Phosphate 600 mg in 50 mls @ 75 mls/hr 11/18/23 21:00 11/19/23 05:43 Cleocin 600 Mg/50 Ml D5w IV 11/21/23 20:59 75 mls/hr Q8HR FLACO Administration Metoprolol Tartrate 25 mg 11/18/23 21:00 11/19/23 08:07 Metoprolol Tartrate 25 Mg Tablet PO 25 mg BID FLACO Administration Paroxetine HCl 10 mg 11/19/23 09:00 11/19/23 08:07 Paroxetine Hcl 20 Mg Tablet PO 10 mg DAILY FLACO Administration Ropinirole HCl 0.5 mg 11/18/23 21:00 11/18/23 20:59 Ropinirole Hcl 0.25 Mg Tablet PO 0.5 mg BEDTIME FLACO Administration Plan Plan: 1. Acute Hypoxic Respiratory Failure in setting of CHF - Resolved 2. CHF, unknown type - Improving, unknown onset, diuresed 4L total, transition to PO lasix today, fluid restriction, I&O, daily weight, echo today 3. New Onset Atrial Fibrillation - lovenox for anticoagulation, will d/c with eliquis, metoprolol tartrate 25 mg BID initially - will d/c with succinate 4. Cellulitis to BLE - Improving, likely due to fluid retention, treating with clindamycin Q8H IVPB 5. Hypertension - chronic, stable, continue home medications DVT Prophylaxis: Lovenox Review Statement Review Statement: I have personally discussed and reviewed the patient's visit/currently labs/imaging/decision making with Dr. Clark, my supervising attending. Greater that 50 minutes spent with patient, 50% of the time spent with this patient was devoted to counseling and coordination of care.
[2023-11-19] MEDS: NYSTOP POWDER TP SCH (10:12)
[2023-11-19] MEDS: TYLENOL PO PRN (10:18)
--- NOTE | 2023-11-19 12:55 | ECHO2D ---
Date of Exam: 11/19/2023 Ordering Physician: RITA RIVERA/ [facility] Room #: 112 Reason for Echo: A-FIB, CHF, EDEMA, SOB, PLEURAL EFFUSION, CARDIOMEGALY M-Mode Normal Adult Results LV Dimensions Normal Adult Results AoV Opening excursions >1.6 >1.6 LVEDD-base- 3.5-5.8 5.1 Ao root dimensions 2.0-3.7 3.4 LVESD-base- 3.1-4.6 L. Atrium dimensions 1.9-3.8 5.6 Post. Wall thickness 0.8-1.1 1.2 IV septum (thickness) 0.7-1.2 1.3 Post. Wall excursion 0.72-1.3 NORMAL Septal motion NORMAL Systolic motion R. Ventricular cavity 1.5-2.0 4.0 LVEF 60% 55% Paradoxical septal wall motion NORMAL 2-D : CALCIFIC MITRAL VALVE ANNULUS, ENLARGED LEFT ATRIAL, RIGHT ATRIAL AND RIGHT VENTRICLE CAVITIES, NORMAL LEFT VENTRICLE SIZE AND LEFT VENTRICLE CONTRACTILITY--NO EFFUSION, NO THROMBUS M-MODE: MV: CALCIFIC MITRAL VALVE ANNULUS AV: NORMAL TV: NORMAL PV: NORMAL CHAMBER SIZE: ENLARGED RIGHT ATRIAL, RIGHT VENTRICLE AND LEFT ATRIAL CAVITIES WALL MOTION: NORMAL PERICARDIUM: NORMAL INTERPRETATION: 1. 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 ENLARGED RIGHT ATRIAL CAVITY AND RIGHT VENTRICLE CAVITY 3. CALCIFIC MITRAL VALVE ANNULUS 4. NORMAL LEFT VENTRICLE SIZE AND LEFT VENTRICLE CONTRACTILITY MTDD
[2023-11-20 05:42] LABS: BASOPHILS % (AUTO) 0.5 % (0.0-3.0); EOSINOPHILS # (AUTO) 0.2 K/ul (0.0-0.7); EOSINOPHILS % (AUTO) 5.5 % (0.0-7.0); HEMATOCRIT 33.6 % (37.0-47.0); HEMOGLOBIN 10.3 g/dl (12.0-16.0); IMMATURE GRANULOCYTE % (AUTO) 0.3 % (0.0-5.0); LYMPHOCYTES # (AUTO) 1.3 K/uL (0.60-3.4); LYMPHOCYTES % (AUTO) 31.3 (10.0-50.0); MEAN CORPUSCULAR HEMOGLOBIN 29.2 pg (27.0-31.0); MEAN CORPUSCULAR HGB CONC 30.7 (31.8-35.4); MEAN CORPUSCULAR VOLUME 95.2 fl (81.0-99.0); MONOCYTES # (AUTO) 0.5 K/uL (0.4-2.0); MONOCYTES % (AUTO) 13.3 (0-10); NEUTROPHILS % (AUTO) 49.1 % (42.2-75.2); PLATELET COUNT 214 10^3/uL (140-440); RED BLOOD COUNT 3.53 10^6/ul (4.20-5.40)
[2023-11-20 05:54] LABS: ALANINE AMINOTRANSFERASE 21.5 U/L (0-35); ALBUMIN 3.45 g/dL (3.5-5.0); ALKALINE PHOSPHATASE 56.2 U/L (53-141); ASPARTATE AMINO TRANSFERASE 25.6 U/L (14-36); BILIRUBIN,TOTAL 0.48 mg/dL (0.2-1.3); BLOOD UREA NITROGEN 44.8 mg/dL (7-17); CALCIUM 8.27 mg/dL (8.4-10.2); CARBON DIOXIDE 31.9 mmol/L (22-30.0); CHLORIDE 102.7 mmol/L (98-107); CREATININE 1.35 mg/dL (0.60-1.30); GLUCOSE 86.8 mg/dL (74-106); POTASSIUM 3.4 mmol/L (3.5-5.1); SODIUM 139.9 mmol/L (134.5-145); TOTAL PROTEIN 6.53 g/dL (6.3-8.2)
[2023-11-20] MEDS: LASIX TAB PO SCH (06:00)
[2023-11-20] MEDS: PRILOSEC PO SCH (08:11)
[2023-11-20] MEDS: K-DUR PO ONE (09:12)
--- NOTE | 2023-11-20 10:33 | DCSUM ---
Admission Date Admission Date: 11/18/23 Discharge Date Discharge Date: 11/20/23 Admission Diagnosis Admission Diagnosis: 1. Acute Hypoxic Respiratory Failure in setting of CHF 2. CHF 3. New Onset Atrial Fibrillation 4. Cellulitis to BLE 5. Hypertension Discharge Diagnosis Discharge Diagnosis: 1. Acute Hypoxic Respiratory Failure in setting of CHF - Resolved 2. CHF - Improving 3. New Onset Atrial Fibrillation - Stable, rate controlled 4. Cellulitis to BLE - Improving 5. Hypertension - Chronic, stable Hospital Provider Hospital Provider: WADE ARCHIBALD[place] [facility] [place] Primary Care Physician: CATALINA ABREU Summary of History and Physical Summary of History and Physical: 88 yo female presented to the ER with complaints of bilateral lower extremity edema and dyspnea on exertion. Patient states that her shortness of breath started a couple days ago and has progressively worsened. In addition to shortness of breath, she has noticed that she had swelling to her feet and ankles accompanied with redness. Denies any known pmh of CHF or history of taking diuretics that she is aware of. States that her legs have also been warm to the touch. Denies any open areas with drainage. No fever at home. States she has had wound care to her lower legs in the past but is not receiving currently. Unknown if she has gained a significant amount of weight recently and states that she does not believe she has had an echo in the past. While in ER, O2 saturation dropped down into the 90s and she was placed on oxygen at 2L. Sat improved to 96-98%. EKG completed and showed A fib at a rate of 98. No previous history of A fib that she is aware of and is not on anticoagulation. States that she has been on anticoagulation in the past but is unsure why. Denies any chest pain, palpitations, or heart racing. BNP found to be >3000. She was given 40 mg of lasix and diuresed approx. 3L of urine while in ER. Admitted to med/surg for further treatment of new onset CHF, A fib, and cellulitis to BLE. Hospital Course Subjective: Patient was treated for new onset CHF with lasix 20 mg Q12H after given 40 mg of lasix in ER. She diuresed 3L in ER and 5-6L total prior to discharge. Started on PO lasix this am. Echo completed and showed EF of 55%. Initially was requiring 2L of oxygen and was weaned off and O2 sat remained 92% or above. 3 step oximetry completed and did not qualify need for home oxygen per daughter concerns. Atrial fibrillation remained rate controlled during stay. Was given lovenox for anticoagulaton. D/c with eliquis due to patient's history of significant bleeding on blood thinner in the past. Discussed with patient and daughter risks vs benefit of starting eliquis. Metoprolol given while in hospital to continue to control heart rate. Cellulitis was present to BLE due to excessive edema. Treated with clindamycin and has shown improvement. D/c with rest of course. CT of chest completed in ER and 3 lung nodules were noted. Recommendations for follow-up imaging PET/CT within 1-3 months recommended. New in onset per daughter's knowledge. Recommend pulmonary follow-up for further work-up. Discussed options with daughter and would like to explore further to determine etiology benign/malignant. Patient is deconditioned due to unknown length of onset of CHF and has significant weakness. Would benefit from PT/OT for strengthening. Also would benefit from nursing care due to new medications and lifestyle changes including fluid restriction and diet modifications. Appearance: Pleasant, No Apparent Distress and Alert HEENT: MMM and Supple CVS: No Murmur and No Rubs Abdomen: Soft, Non-Tender and No Distention Respiratory: No Dyspnea Extremities: Other (+1-2 nonpitting edema BLE) Vital Signs: Most Recent Vital Signs Temperature 97.6 F 11/20/23 05:08 Temperature Source Temporal Artery Scan 11/20/23 05:08 Temperature Source Infrared 11/18/23 11:03 Pulse Rate 68 11/20/23 05:08 Respiratory Rate 18 11/20/23 05:08 Blood Pressure 126/69 11/20/23 05:08 Blood Pressure Mean 88 11/20/23 05:08 Blood Pressure Left Arm 137/87 11/18/23 16:30 Blood Pressure Location Left Arm 11/20/23 05:08 Blood Pressure Position Supine 11/20/23 05:08 O2 Sat by Pulse Oximetry 94 L 11/20/23 09:49 Oxygen Delivery Method Room Air 11/20/23 10:00 Oxygen Flow Rate 2 11/20/23 08:00 Height 5 ft 11/19/23 08:45 Weight 202 lb 11/20/23 05:08 Telemetry Type Remote Telemetry 11/20/23 07:00 Telemetry Monitoring Continues 11/20/23 07:00 Irregular Telemetry Rate (Approximate) 50-60 BPM 11/20/23 07:00 Telemetry Heart Rate 72 11/19/23 07:00 EKG GA Interval 0.13 11/19/23 13:00 EKG QRS Interval 0.10 11/20/23 07:00 Telemetry Strip Reading AFIB 11/20/23 07:00 Lab Results Last 24 Hours: 11/20/23 05:34 WBC 4.00 L RBC 3.53 L Hgb 10.3 L Hct 33.6 L MCV 95.2 MCH 29.2 MCHC 30.7 L RDW Coeff of Annika 15.0 H Plt Count 214 Immature Gran % (Auto) 0.3 Neut % (Auto) 49.1 Lymph % (Auto) 31.3 Boyd % (Auto) 13.3 H Eos % (Auto) 5.5 Baso % (Auto) 0.5 Neut # (Auto) 2.0 Lymph # (Auto) 1.3 Boyd # (Auto) 0.5 Eos # (Auto) 0.2 Baso # (Auto) 0.0 Immature Gran # (Auto) 0.0 Sodium 139.9 Potassium 3.40 L Chloride 102.7 Carbon Dioxide 31.9 H Anion Gap 8.70 BUN 44.8 H Creatinine 1.35 H Estimated GFR (MDRD) 37.00 BUN/Creatinine Ratio 33.18 Glucose 86.8 Calcium 8.27 L Total Bilirubin 0.48 AST 25.6 ALT 21.5 Alkaline Phosphatase 56.2 Total Protein 6.53 Albumin 3.45 L Globulin 3.08 Albumin/Globulin Ratio 1.12 Discharge Instructions Discharge Planning: Discharge Planning > 40 minutes If patient is discharged with left ventricular systolic dysfunction: NA Discharged with a beta lee? [] If no, why not? [] Discharged with an josé miguel/arb? [] If no, why not? [] DX: ACUTE HYPOXIC RESPIRATORY FAILURE D/T CHF EXAC, CHFPEF, CELLULITIS, AFIB RX: LASIX, ELIQUIS, CLINDAMYCIN, METOPROLOL CARDIAC DIET 2L FLUID RESTRICTION ACTIVITY TOLERATED PT/OT/LONG TERM HEALTH FOLLOW-UP WITH PCP NEXT WEEK PULMONARY TO SCHEDULE Discharge Medications: Medications at Discharge (Home Meds & RX) amlodipine 5 mg tablet 5 mg PO DAILY 12/22/18 gabapentin 600 mg tablet (Neurontin) 600 mg PO DAILY 08/16/18 hydralazine 10 mg tablet 10 mg PO TID 08/16/18 paroxetine HCl 10 mg tablet 10 mg PO DAILY 11/18/23 ropinirole 0.5 mg tablet 0.5 mg PO BEDTIME 11/18/23 omeprazole 20 mg capsule,delayed release 20 mg PO DAILY 11/20/23 Discharge Plan Discharge Discharge Orders: Discharge Patient (ONCE); Ordered 11/20/23 Ordered By: BOBBY SOTO Activity Restrictions/Additional Instructions: Cardiac diet (low salt) 2L fluid restriction daily Weigh yourself daily Home health PT/OT/NURSING has been initiated through [facility], they will be in contact to start services. Pulmonology referral sent to [facility]. They will contact you to set an appointment. Medications: Clindamycin 300 mg take three times a day x 4 days (Antibiotic) Lasix 20 mg daily (Fluid pill) Toprol XL 50 mg daily (A fib) Eliquis 2.5 mg daily (Blood thinner for A fib) Instructions: Heart Failure (GEN), A-fib (Atrial Fibrillation) (GEN), Cellulitis (GEN), Blood Thinners (GEN) Patient Disposition: HOME WITH FAMILY CARE Prescriptions: New furosemide 20 mg Tablet 20 mg PO QDAC2 Qty: 30 0RF nystatin [Nystop] 100,000 unit/gram Powder 1 applic topical TID Qty: 1 0RF Rx Instructions: under folds Eliquis 2.5 mg tablet 2.5 mg PO BID Qty: 60 0RF clindamycin HCl 300 mg capsule 300 mg PO TID 4 Days Qty: 12 0RF metoprolol succinate [Toprol XL] 50 mg tablet extended release 24 hr 50 mg PO DAILY Qty: 30 0RF Continued ropinirole 0.5 mg tablet 0.5 mg PO BEDTIME Patient Comments: TAKE 1 TABLET BY MOUTH EVERY NIGHT 1 HOUR BEFORE BEDTIME paroxetine HCl 10 mg tablet 10 mg PO DAILY Patient Comments: TAKE 1 TABLET BY MOUTH EVERY MORNING omeprazole 20 mg capsule,delayed release(DR/EC) 20 mg PO DAILY hydralazine 10 MG tablet 10 mg PO TID gabapentin [Neurontin] 600 MG tablet 600 mg PO DAILY amlodipine 5 MG tablet 5 mg PO DAILY Did you review [place] [employer] for ALL controlled substances?: No Discussed opioids are addictive and Narcan is available by prescription or from pharmacy.: No Condition: Stable Referrals: CATALINA ABREU MD [Primary Care Provider] - 11/25/23 10:45 am
[2023-11-20 10:40] VITALS: BP 110/56; PULSE 67; RESP 16; TEMP 98.5
== END 2023-11-20 11:13 | disposition home or self-care (01) ==
LOC: MEDSURG B 11:02 → ED 11:02 → MEDSURG B 16:04
PROVIDERS: ADMIT Hospitalist; ATTEND Nurse Practitioner Family
DX: I10 Essential (primary) hypertension; Z20.822 Contact with and (suspected) exposure to COVID-19; L03.116 Cellulitis of left lower limb; I50.9 Heart failure, unspecified; J96.01 Acute respiratory failure with hypoxia; L03.115 Cellulitis of right lower limb; I48.91 Unspecified atrial fibrillation